=== PATIENT | male | born 1970 | race African-American/Black ===

== ENCOUNTER 2017-05-17 10:31 | Inpatient (IN) | payer OTHER ==
[2017-05-17 11:51] VITALS: BMI 48.1
--- NOTE | 2017-05-17 12:28 | HP ---
CIWA Score - CIWA Score Nausea/Vomitin Muscle Tremors: 4-Moderate,w/Arms Extend Anxiety: 4-Mod. Anxious/Guarded Agitation: 2 Paroxysmal Sweats: 2 Orientation: 0-Oriented Tacttile Disturbances: 0-None Auditory Disturbances: 0-None Visual Disturbances: 0-None Headache: 2-Mild CIWA-Ar Total Score: 17 Admission ROS S - HPI Chief Complaint: Alcohol withdrawal symptoms Allergies/Adverse Reactions: Allergies Allergy/AdvReac Type Severity Reaction Status Date / Time No Known Allergies Allergy Verified 05/17/17 12:13 History of Present Illness: 47 years old male with a long history of alcohol, cocaine and marijuana dependence is admitted to detox. Patient has been in previous detox and reports insignificant period of sobriety. Past states that the last time he was in detox was ten years ago at [facility]. He has past medical history of arthritis and depression. Exam Limitations: No Limitations - Ebola screening Have you traveled outside of the country in the last 21 days: No Have you had contact with anyone from an Ebola affected area: No Have you been sick,other than usual withdrawal symptoms: No Do you have a fever: No - Review of Systems Constitutional: Chills, Loss of Appetite, Malaise, Night Sweats, Changes in sleep EENT: reports: Tinnitus (both ears) Respiratory: reports: Cough (non productive) Cardiac: reports: No Symptoms Reported GI: reports: No Symptoms Reported, Diarrhea (x 3), Nausea, Poor Appetite, Poor Fluid Intake, Vomiting, Abdominal cramping : reports: No Symptoms Reported Musculoskeletal: reports: Joint Pain, Muscle Pain, Muscle Weakness Integumentary: reports: Dryness Neuro: reports: Headache, Tingling, Tremors Endocrine: reports: Increased Thirst Hematology: reports: No Symptoms Reported Psychiatric: reports: Agitated, Anxious, Depressed Other Systems: Reviewed and Negative Patient History - Patient Medical History Hx Anemia: No Hx Asthma: No Hx Chronic Obstructive Pulmonary Disease (COPD): No Hx Cancer: No Hx Cardiac Disorders: No Hx Congestive Heart Failure: No Hx Hypertension: No Hx Hypercholesterolemia: No Hx Pacemaker: No HX Cerebrovascular Accident: No Hx Seizures: No Hx Dementia: No Hx Diabetes: No Hx Gastrointestinal Disorders: No Hx Liver Disease: No Hx Genitourinary Disorders: No Hx Sexually Transmitted Disorders: No Hx Renal Disease (ESRD): No Hx Thyroid Disease: No Hx Human Immunodeficiency Virus (HIV): No (Negative 2016) Hx Hepatitis C: No Hx Depression: Yes Hx Suicide Attempt: Yes ( suicidal attempt at age 7 and 2012) Hx Bipolar Disorder: Yes Hx Schizophrenia: Yes - Patient Surgical History Past Surgical History: No - PPD History Previous Implant?: Yes ([facility]) Documented Results: Negative w/o proof Implanted On Prior [facility] Admission?: No PPD to be Administered?: Yes - Reproductive History Patient is a Female of Child Bearing Age (11 -55 yrs old): No (Male) - Smoking Cessation Smoking history: Current every day smoker Have you smoked in the past 12 months: Yes Aproximately how many cigarettes per day: 20 Hx Chewing Tobacco Use: No Initiated information on smoking cessation: Yes 'Breaking Loose' booklet given: 05/17/17 - Substance & Tx. History Hx Alcohol Use: Yes (Beer, Vodka, Rum) Hx Substance Use: Yes (Marijuana, cocaine) Substance Use Type: Alcohol, Cocaine, Marijuana Hx Substance Use Treatment: Yes ([facility] 10 years ago) - Substances Abused Alcohol Route: Oral Frequency: Daily Amount used: liquor- 4 pints, beer- 1 six pack - 24 oz Age of first use: 14 Date of Last Use: 05/17/17 Marijuana/Hashish Route: Smoking Frequency: Daily Amount used: $10 Age of first use: 14 Date of Last Use: 05/16/17 Cocaine Route: Smoking Frequency: Daily Amount used: $100 Age of first use: 14 Date of Last Use: 05/16/17 Family Disease History - Family Disease History Family Disease History: Other: Father (Alcoholic), Brother (Drug addict) Admission Physical Exam [facility] - Vital Signs Vital Signs: Vital Signs - 24 hr 05/17/17 11:48 Temperature 99.9 F H Pulse Rate 73 Respiratory 19 Rate Blood Pressure 132/68 - Physical General Appearance: Yes: Moderate Distress, Tremorous, Irritable, Sweating, Anxious HEENTM: Yes: [place], Other (ringing in bilateral ears) Respiratory: Yes: Lungs Clear, Normal Breath Sounds, No Respiratory Distress Neck: Yes: Supple Breast: Yes: Breast Exam Deferred Cardiology: Yes: Regular Rhythm, Regular Rate, S1, S2 Abdominal: Yes: Normal Bowel Sounds, Soft Genitourinary: Yes: Within Normal Limits Back: Yes: Muscle Spasm Musculoskeletal: Yes: Joint Stiffness (bilateral hands), Muscle Pain, Muscle weakness Extremities: Yes: Tremors Neurological: Yes: Alert, Normal Mood/Affect, Normal Response Integumentary: Yes: Dry Lymphatic: Yes: Within Normal Limits - Diagnostic (1) Alcohol dependence with uncomplicated withdrawal Current Visit: Yes Status: Chronic (2) Cocaine dependence, uncomplicated Current Visit: Yes Status: Chronic (3) Cannabis dependence, uncomplicated Current Visit: Yes Status: Chronic (4) Depression Current Visit: Yes Status: Chronic (5) Arthritis Current Visit: Yes Status: Chronic Cleared for Admission [facility] - Detox or Rehab [facility] Level of Care: Medically Managed Detox Regimen/Protocol: Librium [facility] Breath Alcohol Content Breath Alcohol Content: 0 Urine Drug Screen - Results Drug Screen Negative: No Urine Drug Screen Results: THC-Marijuana, [place]-Cocaine
[2017-05-17] MEDS ORDERED: MAGNESIUM HYDROX 2400MG/30ML ORAL SUSPENSION 30 ML CUP PO PRN (13:03)
[2017-05-17] MEDS ORDERED: P-EPHED 60MG/TRIPROLIDI 2.5MG TABLET PO PRN (13:03)
[2017-05-17] MEDS ORDERED: NICOTINE POLACRILEX 2 MG GUM BC PRN (13:03)
[2017-05-17] MEDS ORDERED: chlordiazePOXIDE HCL 25 MG CAPSULE PO PRN (13:03)
[2017-05-17] MEDS ORDERED: ACETAMINOPHEN 325 MG TABLET (FP) PO PRN (13:03)
[2017-05-17] MEDS ORDERED: LOPERAMIDE HCL 2 MG CAPSULE PO PRN (13:03)
[2017-05-17] MEDS ORDERED: MAGNESIUM CITRATE 300 ML BOTTLE PO PRN (13:03)
[2017-05-17] MEDS ORDERED: MENTHOL/PHENOL 1 EACH UD MM PRN (13:03)
[2017-05-17] MEDS ORDERED: MAG HYDROX/AL HYDROX/SIMETH 30 ML UNIT-DOSE CUP PO PRN (13:03)
[2017-05-17] MEDS ORDERED: IBUPROFEN 400 MG TABLET (FP) PO PRN (13:03)
[2017-05-17] MEDS: chlordiazePOXIDE HCL 25 MG CAPSULE PO SCH ×2 (17:37→22:27)
[2017-05-17 18:40] LABS: URINE APPEARANCE SLCLOUDY; URINE BILIRUBIN NEGATIVE (NEGATIVE); URINE BLOOD NEGATIVE (NEGATIVE); URINE COLOR YELLOW; URINE GLUCOSE (UA) NEGATIVE (NEGATIVE); URINE KETONE NEGATIVE (NEGATIVE); URINE LEUK ESTERASE NEGATIVE (NEGATIVE); URINE NITRITE NEGATIVE (NEGATIVE); URINE PROTEIN NEGATIVE (NEGATIVE); URINE UROBILINOGEN NEGATIVE mg/dL (0.2-1.0)
[2017-05-17] MEDS: THIAMINE HCL 100 MG TABLET (FP) PO SCH (22:27)
[2017-05-18] MEDS: chlordiazePOXIDE HCL 25 MG CAPSULE PO SCH ×4 (05:09→22:22)
[2017-05-18] MEDS: guaiFENesin/D-METHORPHAN HB 10 ML UNIT-DOSE CUPS PO PRN ×2 (05:11→15:28)
[2017-05-18] MEDS: PRENATAL VITAMINS W/ FOLIC ACID TABLET (FP) PO SCH (10:01)
[2017-05-18] MEDS: NICOTINE 14 MG/24 HOURS TOPICAL PATCH TD SCH (10:01)
[2017-05-18 12:09] LABS: HEMATOCRIT 36.5 % (35.4-49); HEMOGLOBIN 11.7 GM/dL (11.7-16.9); MCH 30.2 pg (25.7-33.7); MEAN CELL VOLUME 94.2 fl (80-96); MEAN PLT VOLUME 9.6 fl (7.5-11.1); PLATELET COUNT 228 K/MM3 (134-434); RBC 3.88 M/mm3 (4.00-5.60); RDW 13.7 % (11.9-15.9); WHITE BLOOD COUNT 7.5 K/mm3 (4.0-10.0)
[2017-05-18 12:18] LABS: CALCIUM 8.4 mg/dL (8.5-10.1); CHLORIDE 102 mmol/L (98-107); POTASSIUM 4.2 mmol/L (3.5-5.1); SODIUM 137 mmol/L (136-145)
[2017-05-18 12:24] LABS: ALK PHOS 85 U/L (45-117); ANION GAP 8 (8-16); BILIRUBIN,TOTAL 0.3 mg/dL (0.2-1.0); BLOOD UREA NITROGEN 8 mg/dL (7-18); CO2 27 mmol/L (21-32); CREATININE 1.1 mg/dL (0.7-1.3); GLUCOSE,RANDOM 101 mg/dL (74-106); SGOT/AST 28 U/L (15-37); SGPT/ALT 41 U/L (12-78); TOT PROT 7.1 g/dl (6.4-8.2)
--- NOTE | 2017-05-18 12:46 | PN ---
[facility] CIWA - CIWA Score Nausea/Vomitin-No Nausea/No Vomiting Muscle Tremors: 4-Moderate,w/Arms Extend Anxiety: 4-Mod. Anxious/Guarded Agitation: 4-Moderately Restless Paroxysmal Sweats: 1-Minimal Palms Moist Orientation: 0-Oriented Tacttile Disturbances: 3-Moderate Itch/Numb/Burn Auditory Disturbances: 0-None Visual Disturbances: 0-None Headache: 0-None Present CIWA-Ar Total Score: 16 BHS Progress Note (SOAP) Subjective: ANXIETY,TREMORS,FATIGUE Objective: 05/18/17 12:46 Vital Signs Temperature 99.6 F 05/18/17 09:21 Pulse Rate 71 05/18/17 09:21 Respiratory Rate 18 05/18/17 09:21 Blood Pressure 138/77 05/18/17 09:21 O2 Sat by Pulse Oximetry (%) Laboratory Last Values WBC 7.5 K/mm3 (4.0-10.0) 05/18/17 07:50 RBC 3.88 M/mm3 (4.00-5.60) L 05/18/17 07:50 Hgb 11.7 GM/dL (11.7-16.9) 05/18/17 07:50 Hct 36.5 % (35.4-49) 05/18/17 07:50 MCV 94.2 fl (80-96) 05/18/17 07:50 MCH 30.2 pg (25.7-33.7) 05/18/17 07:50 MCHC 32.0 g/dl (32.0-35.9) 05/18/17 07:50 RDW 13.7 % (11.9-15.9) 05/18/17 07:50 Plt Count 228 K/MM3 (134-434) 05/18/17 07:50 MPV 9.6 fl (7.5-11.1) 05/18/17 07:50 Sodium 137 mmol/L (136-145) 05/18/17 07:50 Potassium 4.2 mmol/L (3.5-5.1) 05/18/17 07:50 Chloride 102 mmol/L (98-107) 05/18/17 07:50 Carbon Dioxide 27 mmol/L (21-32) 05/18/17 07:50 Anion Gap 8 (8-16) 05/18/17 07:50 BUN 8 mg/dL (7-18) 05/18/17 07:50 Creatinine 1.1 mg/dL (0.7-1.3) 05/18/17 07:50 Creat Clearance w eGFR > 60 (>60) 05/18/17 07:50 Random Glucose 101 mg/dL (74-106) 05/18/17 07:50 Calcium 8.4 mg/dL (8.5-10.1) L 05/18/17 07:50 Total Bilirubin 0.3 mg/dL (0.2-1.0) 05/18/17 07:50 AST 28 U/L (15-37) 05/18/17 07:50 ALT 41 U/L (12-78) 05/18/17 07:50 Alkaline Phosphatase 85 U/L (45-117) 05/18/17 07:50 Total Protein 7.1 g/dl (6.4-8.2) 05/18/17 07:50 Albumin 3.0 g/dl (3.4-5.0) L 05/18/17 07:50 Urine Color Yellow 05/17/17 16:00 Urine Appearance Slcloudy 05/17/17 16:00 Urine pH 5.0 (5.0-8.0) 05/17/17 16:00 Ur Specific [place] 1.026 (1.001-1.035) 05/17/17 16:00 Urine Protein Negative (NEGATIVE) 05/17/17 16:00 Urine Glucose (UA) Negative (NEGATIVE) 05/17/17 16:00 Urine Ketones Negative (NEGATIVE) 05/17/17 16:00 Urine Blood Negative (NEGATIVE) 05/17/17 16:00 Urine Nitrite Negative (NEGATIVE) 05/17/17 16:00 Urine Bilirubin Negative (NEGATIVE) 05/17/17 16:00 Urine Urobilinogen Negative mg/dL (0.2-1.0) 05/17/17 16:00 Ur Leukocyte Esterase Negative (NEGATIVE) 05/17/17 16:00 Assessment: 05/18/17 12:46 WITHDRAWAL SX Plan: CONTINUE DETOX
[2017-05-18 12:52] LABS: SICKLE CELL SCREEN NEGATIVE (NEGATIVE)
--- NOTE | 2017-05-18 12:59 | CONSULT ---
[facility] Psychiatric Consult - Data Date of interview: 05/18/16 Admission source: [facility] Substance Abuse History: Following information confirmed with Mr. Dia: - Smoking Cessation. Smoking history: Current every day smoker. Have you smoked in the past 12 months: Yes. Aproximately how many cigarettes per day: 20. Hx Chewing Tobacco Use: No. Initiated information on smoking cessation: Yes. ' Breaking Loose' booklet given: 05/17/17. - Substance & Tx. History. Hx Alcohol Use: Yes (Beer, Vodka, Rum). Hx Substance Use: Yes (Marijuana, cocaine) . Substance Use Type: Alcohol, Cocaine, Marijuana. Hx Substance Use Treatment : Yes ([facility] 10 years ago). - Substances Abused. Alcohol. Route: Oral. Frequency: Daily. Amount used: liquor- 4 pints, beer- 1 six pack - 24 oz. Age of first use: 14. Date of Last Use: 05/17/17. Marijuana/Hashish. Route: Smoking. Frequency: Daily. Amount used: $10. Age of first use: 14. Date of Last Use: 05/16/17. Cocaine. Route: Smoking. Frequency: Daily. Amount used: $100. Age of first use: 14. Date of Last Use: 05/16/17 Medical History: Denies. Psychiatric History: Pt. reports a history of multiple psychiatric hospitalization with the most recent hospitalization occuring at [facility] 3 years ago. Pt. reports a diagnosis of depression, schizoaffective , and bipolar. States he is not compliant with his medication. Pt. unable to recall which medication he has taken in the past. Pt. reports a h/o two suicide attempts. At age 7 patient attempted to hang himself and in his early 20 's patient attempted to jump off a bridge. Pt. currently denies suicidal and homicida ideation. Physical/Sexual Abuse/Trauma History: Denies. Mental Status Exam - Mental Status Exam Alert and Oriented to: Time, Place, Person Cognitive Function: Good Patient Appearance: Unkempt Mood: Withdrawn Affect: Flat Patient Behavior: Sedated, Fatigued Speech Pattern: Delayed, Slurred Voice Loudness: Moderately Soft/Quiet Thought Process: Goal Oriented Thought Disorder: Not Present Hallucinations: Denies Suicidal Ideation: Denies Homicidal Ideation: Denies Insight/Judgement: Poor Sleep: Poorly Appetite: Fair Muscle strength/Tone: Normal Gait/Station: Normal Psychiatric Findings - Problem List ([place] 1, 2,3) (1) Alcohol dependence with uncomplicated withdrawal Current Visit: Yes Status: Acute (2) Cocaine dependence, uncomplicated Current Visit: Yes Status: Acute (3) Cannabis dependence, uncomplicated Current Visit: Yes Status: Acute (4) Bipolar disorder Current Visit: No Status: Chronic Comment: Self reports. (5) Depression Current Visit: No Status: Chronic (6) Schizo affective schizophrenia Current Visit: No Status: Chronic - Initial Treatment Plan Initial Treatment Plan: Psychoeducation proivded. Detoxification in progress. Observation.
--- NOTE | 2017-05-18 14:18 | EKG ---
Test Reason : Blood Pressure : / mmHG Vent. Rate : 065 BPM Atrial Rate : 065 BPM P-R Int : 160 ms QRS Dur : 096 ms QT Int : 414 ms P-R-T Axes : 033 026 034 degrees QTc Int : 430 ms NORMAL SINUS RHYTHM NORMAL ECG NO PREVIOUS ECGS AVAILABLE Confirmed by RIGO CARDENAS, HARRIET ([id number]) on 05/18/2017 2:17:45 PM Referred By: Confirmed By:HARRIET SIERRA MD
[2017-05-18] MEDS: THIAMINE HCL 100 MG TABLET (FP) PO SCH (22:22)
[2017-05-19] MEDS: chlordiazePOXIDE HCL 25 MG CAPSULE PO SCH ×2 (05:11→10:03)
[2017-05-19] MEDS: PRENATAL VITAMINS W/ FOLIC ACID TABLET (FP) PO SCH (10:03)
[2017-05-19] MEDS: NICOTINE 14 MG/24 HOURS TOPICAL PATCH TD SCH (10:03)
--- NOTE | 2017-05-19 10:58 | PN ---
[facility] CIWA - CIWA Score Nausea/Vomitin-No Nausea/No Vomiting Muscle Tremors: 4-Moderate,w/Arms Extend Anxiety: 3 Agitation: 3 Paroxysmal Sweats: No Perspiration Orientation: 0-Oriented Tacttile Disturbances: 2-Mild Itch/Numbness/Burn Auditory Disturbances: 0-None Visual Disturbances: 3-Moderate Sensitivity Headache: 0-None Present CIWA-Ar Total Score: 15 S Progress Note (SOAP) Subjective: Diarrhea, Tremors, Interrupted Sleep, Fatigue. Objective: PT. A & O X 3, OBSERVED AMBULATING ON UNIT. NO ACUTE DISTRESS. 05/19/17 10:59 Vital Signs Temperature 98.9 F 05/19/17 09:41 Pulse Rate 69 05/19/17 09:41 Respiratory Rate 19 05/19/17 09:41 Blood Pressure 151/87 05/19/17 09:41 O2 Sat by Pulse Oximetry (%) Laboratory Tests 05/17/17 05/18/17 05/18/17 16:00 07:50 07:50 WBC 7.5 RBC 3.88 L Hgb 11.7 Hct 36.5 MCV 94.2 MCH 30.2 MCHC 32.0 RDW 13.7 Plt Count 228 MPV 9.6 Sickle Cell Screen Negative Sodium Potassium Chloride Carbon Dioxide Anion Gap BUN Creatinine Creat Clearance w eGFR Random Glucose Calcium Total Bilirubin AST ALT Alkaline Phosphatase Total Protein Albumin Urine Color Yellow Urine Appearance Slcloudy Urine pH 5.0 Ur Specific [place] 1.026 Urine Protein Negative Urine Glucose (UA) Negative Urine Ketones Negative Urine Blood Negative Urine Nitrite Negative Urine Bilirubin Negative Urine Urobilinogen Negative Ur Leukocyte Esterase Negative RPR Titer HIV 1&2 Antibody Screen Negative HIV P24 Antigen Negative 05/18/17 05/18/17 07:50 07:50 WBC RBC Hgb Hct MCV MCH MCHC RDW Plt Count MPV Sickle Cell Screen Sodium 137 Potassium 4.2 Chloride 102 Carbon Dioxide 27 Anion Gap 8 BUN 8 Creatinine 1.1 Creat Clearance w eGFR > 60 Random Glucose 101 Calcium 8.4 L Total Bilirubin 0.3 AST 28 ALT 41 Alkaline Phosphatase 85 Total Protein 7.1 Albumin 3.0 L Urine Color Urine Appearance Urine pH Ur Specific [place] Urine Protein Urine Glucose (UA) Urine Ketones Urine Blood Urine Nitrite Urine Bilirubin Urine Urobilinogen Ur Leukocyte Esterase RPR Titer Nonreactive HIV 1&2 Antibody Screen HIV P24 Antigen LABS NOTED. HCV AB RESULT PENDING. 05/19/17 11:01 Assessment: 05/19/17 10:59 WITHDRAWAL SYMPTOMS. Plan: CONTINUE DETOX.
[2017-05-19] MEDS: chlordiazePOXIDE 5 MG CAPSULE PO SCH ×2 (17:41→22:06)
[2017-05-19] MEDS: THIAMINE HCL 100 MG TABLET (FP) PO SCH (22:06)
[2017-05-20] MEDS: chlordiazePOXIDE 5 MG CAPSULE PO SCH ×2 (06:20→10:18)
[2017-05-20] MEDS: PRENATAL VITAMINS W/ FOLIC ACID TABLET (FP) PO SCH (10:18)
[2017-05-20] MEDS: NICOTINE 14 MG/24 HOURS TOPICAL PATCH TD SCH (10:19)
--- NOTE | 2017-05-20 12:07 | PN ---
[facility] Progress Note (SOAP) Subjective: Diarrhea, Interrupted Sleep, Fatigue. Objective: PT. A & O X 2 (UNCERTAIN ABOUT CURRENT DAY/ DATE). PT. OBSERVED AMBULATING ON UNIT. NO ACUTE DISTRESS. 05/20/17 12:04 Vital Signs Temperature 97.2 F L 05/20/17 09:05 Pulse Rate 89 05/20/17 09:05 Respiratory Rate 18 05/20/17 09:05 Blood Pressure 127/85 05/20/17 09:05 O2 Sat by Pulse Oximetry (%) Laboratory Tests 05/17/17 05/18/17 05/18/17 16:00 07:50 07:50 WBC RBC Hgb Hct MCV MCH MCHC RDW Plt Count MPV Sickle Cell Screen Sodium Potassium Chloride Carbon Dioxide Anion Gap BUN Creatinine Creat Clearance w eGFR Random Glucose Calcium Total Bilirubin AST ALT Alkaline Phosphatase Total Protein Albumin Urine Color Yellow Urine Appearance Slcloudy Urine pH 5.0 Ur Specific [place] 1.026 Urine Protein Negative Urine Glucose (UA) Negative Urine Ketones Negative Urine Blood Negative Urine Nitrite Negative Urine Bilirubin Negative Urine Urobilinogen Negative Ur Leukocyte Esterase Negative RPR Titer Hepatitis C Antibody 0.3 HIV 1&2 Antibody Screen Negative HIV P24 Antigen Negative 05/18/17 05/18/17 05/18/17 07:50 07:50 07:50 WBC 7.5 RBC 3.88 L Hgb 11.7 Hct 36.5 MCV 94.2 MCH 30.2 MCHC 32.0 RDW 13.7 Plt Count 228 MPV 9.6 Sickle Cell Screen Negative Sodium 137 Potassium 4.2 Chloride 102 Carbon Dioxide 27 Anion Gap 8 BUN 8 Creatinine 1.1 Creat Clearance w eGFR > 60 Random Glucose 101 Calcium 8.4 L Total Bilirubin 0.3 AST 28 ALT 41 Alkaline Phosphatase 85 Total Protein 7.1 Albumin 3.0 L Urine Color Urine Appearance Urine pH Ur Specific [place] Urine Protein Urine Glucose (UA) Urine Ketones Urine Blood Urine Nitrite Urine Bilirubin Urine Urobilinogen Ur Leukocyte Esterase RPR Titer Nonreactive Hepatitis C Antibody HIV 1&2 Antibody Screen HIV P24 Antigen LABS NOTED. Assessment: 05/20/17 12:06 WITHDRAWAL SYMPTOMS. Plan: CONTINUE DETOX. PRN IMMODIUM FOR DIARRHEA. INCREASE DAILY PO FLUID INTAKE.
[2017-05-20] MEDS: chlordiazePOXIDE HCL 10 MG CAPSULE PO SCH ×2 (17:38→22:06)
[2017-05-20] MEDS: THIAMINE HCL 100 MG TABLET (FP) PO SCH (22:06)
[2017-05-21] MEDS: chlordiazePOXIDE HCL 10 MG CAPSULE PO SCH ×2 (05:12→10:20)
[2017-05-21] MEDS: NICOTINE 14 MG/24 HOURS TOPICAL PATCH TD SCH (10:20)
[2017-05-21] MEDS: PRENATAL VITAMINS W/ FOLIC ACID TABLET (FP) PO SCH (10:20)
--- NOTE | 2017-05-21 12:08 | PN ---
[facility] Progress Note (SOAP) Subjective: Anxious, Interrupted Sleep. Objective: PT. A & O X 3, OBSERVED AMBULATING ON UNIT. NO ACUTE DISTRESS. PT. DENIES CHEST PAIN. 05/21/17 12:06 Vital Signs Temperature 96.9 F L 05/21/17 08:47 Pulse Rate 75 05/21/17 08:47 Respiratory Rate 18 05/21/17 08:47 Blood Pressure 117/72 05/21/17 08:47 O2 Sat by Pulse Oximetry (%) Laboratory Tests 05/17/17 05/18/17 05/18/17 16:00 07:50 07:50 WBC RBC Hgb Hct MCV MCH MCHC RDW Plt Count MPV Sickle Cell Screen Sodium Potassium Chloride Carbon Dioxide Anion Gap BUN Creatinine Creat Clearance w eGFR Random Glucose Calcium Total Bilirubin AST ALT Alkaline Phosphatase Total Protein Albumin Urine Color Yellow Urine Appearance Slcloudy Urine pH 5.0 Ur Specific [place] 1.026 Urine Protein Negative Urine Glucose (UA) Negative Urine Ketones Negative Urine Blood Negative Urine Nitrite Negative Urine Bilirubin Negative Urine Urobilinogen Negative Ur Leukocyte Esterase Negative RPR Titer Hepatitis C Antibody 0.3 HIV 1&2 Antibody Screen Negative HIV P24 Antigen Negative 05/18/17 05/18/17 05/18/17 07:50 07:50 07:50 WBC 7.5 RBC 3.88 L Hgb 11.7 Hct 36.5 MCV 94.2 MCH 30.2 MCHC 32.0 RDW 13.7 Plt Count 228 MPV 9.6 Sickle Cell Screen Negative Sodium 137 Potassium 4.2 Chloride 102 Carbon Dioxide 27 Anion Gap 8 BUN 8 Creatinine 1.1 Creat Clearance w eGFR > 60 Random Glucose 101 Calcium 8.4 L Total Bilirubin 0.3 AST 28 ALT 41 Alkaline Phosphatase 85 Total Protein 7.1 Albumin 3.0 L Urine Color Urine Appearance Urine pH Ur Specific [place] Urine Protein Urine Glucose (UA) Urine Ketones Urine Blood Urine Nitrite Urine Bilirubin Urine Urobilinogen Ur Leukocyte Esterase RPR Titer Nonreactive Hepatitis C Antibody HIV 1&2 Antibody Screen HIV P24 Antigen LABS NOTED. Assessment: 05/21/17 12:06 WITHDRAWAL SYMPTOMS. Plan: CONTINUE DETOX. DUE TO SEVERELY INCLEMENT WEATHER OUTSIDE, PATIENT TO REMAIN ON DETOX UNIT ( WHILE AFTERCARE PLANS ARE ARRANGED BY HIM AND HIS COUNSELOR) UNTIL TOMORROW FOR DISCHARGE.
[2017-05-21] MEDS: THIAMINE HCL 100 MG TABLET (FP) PO SCH (22:10)
[2017-05-22 05:59] VITALS: BP 134/84; PULSE 65; TEMP 98.6
[2017-05-22] MEDS: NICOTINE 14 MG/24 HOURS TOPICAL PATCH TD SCH (09:03)
[2017-05-22] MEDS: PRENATAL VITAMINS W/ FOLIC ACID TABLET (FP) PO SCH (09:03)
--- NOTE | 2017-05-22 12:21 | DS ---
[facility] Detox Discharge Summary Admission Date: 05/17/17 Discharge Date: 05/22/17 - History Present History: Alcohol Dependence, Cannabis Dependence, Cocaine Dependence Additional Comments: DETOX COMPLETED. ALERT O X 3. NAD. FOLLOW UP WITH AFTERCARE DIRECTED AT [facility]. FOLLOW UP MEDICAL MANAGEMENT WITH PCP AT [facility]. Pertinent Past History: ARTHRITIS HX SCHIZOPHRENIA - Physical Exam Results Vital Signs: Vital Signs Temperature 98.6 F 05/22/17 05:58 Pulse Rate 65 05/22/17 05:58 Respiratory Rate 20 05/22/17 05:58 Blood Pressure 134/84 05/22/17 05:58 O2 Sat by Pulse Oximetry (%) Pertinent Admission Physical Exam Findings: WITHDRAWAL SX Laboratory Last Values WBC 7.5 K/mm3 (4.0-10.0) 05/18/17 07:50 RBC 3.88 M/mm3 (4.00-5.60) L 05/18/17 07:50 Hgb 11.7 GM/dL (11.7-16.9) 05/18/17 07:50 Hct 36.5 % (35.4-49) 05/18/17 07:50 MCV 94.2 fl (80-96) 05/18/17 07:50 MCH 30.2 pg (25.7-33.7) 05/18/17 07:50 MCHC 32.0 g/dl (32.0-35.9) 05/18/17 07:50 RDW 13.7 % (11.9-15.9) 05/18/17 07:50 Plt Count 228 K/MM3 (134-434) 05/18/17 07:50 MPV 9.6 fl (7.5-11.1) 05/18/17 07:50 Sickle Cell Screen Negative (NEGATIVE) 05/18/17 07:50 Sodium 137 mmol/L (136-145) 05/18/17 07:50 Potassium 4.2 mmol/L (3.5-5.1) 05/18/17 07:50 Chloride 102 mmol/L (98-107) 05/18/17 07:50 Carbon Dioxide 27 mmol/L (21-32) 05/18/17 07:50 Anion Gap 8 (8-16) 05/18/17 07:50 BUN 8 mg/dL (7-18) 05/18/17 07:50 Creatinine 1.1 mg/dL (0.7-1.3) 05/18/17 07:50 Creat Clearance w eGFR > 60 (>60) 05/18/17 07:50 Random Glucose 101 mg/dL (74-106) 05/18/17 07:50 Calcium 8.4 mg/dL (8.5-10.1) L 05/18/17 07:50 Total Bilirubin 0.3 mg/dL (0.2-1.0) 05/18/17 07:50 AST 28 U/L (15-37) 05/18/17 07:50 ALT 41 U/L (12-78) 05/18/17 07:50 Alkaline Phosphatase 85 U/L (45-117) 05/18/17 07:50 Total Protein 7.1 g/dl (6.4-8.2) 05/18/17 07:50 Albumin 3.0 g/dl (3.4-5.0) L 05/18/17 07:50 Urine Color Yellow 05/17/17 16:00 Urine Appearance Slcloudy 05/17/17 16:00 Urine pH 5.0 (5.0-8.0) 05/17/17 16:00 Ur Specific [place] 1.026 (1.001-1.035) 05/17/17 16:00 Urine Protein Negative (NEGATIVE) 05/17/17 16:00 Urine Glucose (UA) Negative (NEGATIVE) 05/17/17 16:00 Urine Ketones Negative (NEGATIVE) 05/17/17 16:00 Urine Blood Negative (NEGATIVE) 05/17/17 16:00 Urine Nitrite Negative (NEGATIVE) 05/17/17 16:00 Urine Bilirubin Negative (NEGATIVE) 05/17/17 16:00 Urine Urobilinogen Negative mg/dL (0.2-1.0) 05/17/17 16:00 Ur Leukocyte Esterase Negative (NEGATIVE) 05/17/17 16:00 RPR Titer Nonreactive (NONREACTIVE) 05/18/17 07:50 Hepatitis C Antibody 0.3 s/co ratio (0.0-0.9) 05/18/17 07:50 HIV 1&2 Antibody Screen Negative 05/18/17 07:50 HIV P24 Antigen Negative 05/18/17 07:50 - Treatment Hospital Course: Detox Protocol Followed, Detoxed Safely, Responded well, Discharged Condition Good - Medication Discharge Medications: Ambulatory Orders NK [No Known Home Medication] 05/17/17 - Diagnosis (1) Alcohol dependence with uncomplicated withdrawal Status: Acute (2) Arthritis Status: Chronic (3) Cannabis dependence, uncomplicated Status: Acute (4) Cocaine dependence, uncomplicated Status: Acute - AMA Did Patient Leave Against Medical Advice: No
== END 2017-05-22 09:10 | disposition home or self-care (01) | DRG 897 ==
LOC: YASAS 10:31 → Y3N 12:25
PROVIDERS: ADMIT Internal Medicine; ATTEND Internal Medicine
PROC: HZ2ZZZZ Detoxification Services for Substance Abuse Treatment (ICD-10-PCS; principal; 2017-05-17)
DX: F10.230 Alcohol dependence with withdrawal, uncomplicated (principal); F14.20 Cocaine dependence, uncomplicated; F12.20 Cannabis dependence, uncomplicated; F31.9 Bipolar disorder, unspecified; F59 Unspecified behavioral syndromes associated with physiological disturbances and physical factors; M12.9 Arthropathy, unspecified; Z91.5 Personal history of self-harm
CPT/HCPCS: 36415; 71046-TC; 80053; 81003; 85027; 85660; 86593; 86803; 87389; 93005; 93010